=== PATIENT | male | born 1980 | race Caucasian/White ===

== ENCOUNTER 2025-08-26 00:03 | Emergency (ER) | payer MEDICARE ==
[~2025-08-26] VITALS: Ht 170.2 cm; Wt 82.0 kg
[~2025-08-26 00:03] MED LIST: ASPI-1406 MT; ATOR-2 MT; CLOP-31 MT
[2025-08-26 00:12] VITALS: TEMP 36.9; O2SAT 99
[2025-08-26 00:43] LABS: BASOPHILS % 0.3 % (0.0-2.0); EOSINOPHILS % 2.9 % (0.0-5.0); HEMATOCRIT. 45.6 % (42.0-52.0); HEMOGLOBIN. 15.5 g/dL (14.0-18.0); LYMPHOCYTES % 36.4 % (20.0-50.0); MEAN PLATELET VOLUME 8.3 fl (7.4-10.4); MONOCYTES % 9.1 % (2.0-8.0); NEUTROPHILS % 51.3 % (40.0-76.0); PLATELET 201 x1000/uL (130-400); RED BLOOD CELL COUNT 5.31 mill/uL (4.7-6.1); RED CELL DISTRIBUTION WIDTH 13.4 % (11.6-14.6)
[2025-08-26] MEDS: MAGNESIUM/ALUMINUM HYDROXIDE/SIMETHICONE 30ML UDC PO ONE (00:48)
[2025-08-26] MEDS: ASPIRIN 325MG EC TABLET PO ONE (00:48)
[2025-08-26] MEDS: FAMOTIDINE 20MG TABLET PO ONE (00:48)
[2025-08-26 00:59] LABS: CREATININE 0.9 mg/dL (0.6-1.3); ETHANOL BLOOD < 10 mg/dL (<10); UREA NITROGEN BLOOD 8 mg/dL (9-23)
[2025-08-26 01:00] LABS: PROTEIN TOTAL 6.9 g/dL (6.0-8.3)
[2025-08-26 01:01] LABS: ASPARTATE AMINOTRANSFERASE 22 IU/L (<34); BILIRUBIN DIRECT < 0.1 mg/dL (<=3.0); BILIRUBIN TOTAL 0.4 mg/dL (0.1-1.0); TROPONIN I HIGH SENSITIVITY < 4 ng/L (3.0-53)
[2025-08-26 01:46] LABS: INR 1.0
[2025-08-26 02:56] LABS: TROPONIN I HIGH SENSITIVITY < 4 ng/L (3.0-53)
[2025-08-26 03:06] VITALS: BP 117/88; PULSE 69; RESP 14; O2SAT 97
== END 2025-08-26 03:06 | disposition home or self-care (01) ==
LOC: ER 00:03
DX: R07.9 Chest pain, unspecified (principal); R06.02 Shortness of breath; Z79.899 Other long term (current) drug therapy; Z86.73 Personal history of transient ischemic attack (TIA), and cerebral infarction without residual deficits; Z90.49 Acquired absence of other specified parts of digestive tract
CPT/HCPCS: 36415; 71045; 80048; 80076; 80320; 83880; 84484; 85025; 93005; 99285; G0480